=== PATIENT | female | born 1970 | race Caucasian/White ===

== ENCOUNTER 2017-07-06 17:34 | Emergency (ER) | payer SELFPAY ==
[~2017-07-06] VITALS: Ht 162.6 cm; Wt 68.0 kg
[2017-07-06 17:47] VITALS: BP 160/85; PULSE 86; RESP 20; TEMP 98.4; O2SAT 97
[2017-07-06] MEDS ORDERED: EFFE150C PO (18:19)
[2017-07-06] MEDS ORDERED: LEVO50TA4 PO (18:19)
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
[2017-07-06] MEDS ORDERED: ACETAMINOPHEN 325 MG TAB PO ONE (20:30)
== END 2017-07-07 02:12 | disposition left against medical advice (07) ==
LOC: NEPC 17:34
DX: T76.21XA Adult sexual abuse, suspected, initial encounter (principal)
CPT/HCPCS: 99281